=== PATIENT | female | born 1945 | race African-American/Black ===

== ENCOUNTER 2017-06-23 04:08 | Inpatient (IN) ==
[2017-06-23] MEDS ORDERED: ONDANSETRON 4 MG/2 ML VIAL ONE (04:39)
[2017-06-23] MEDS ORDERED: ONDANSETRON 4 MG/2 ML VIAL IV STA (04:42)
[2017-06-23] MEDS ORDERED: HYDROmorphone 2 MG/1 ML VIAL IV STA ×2 (04:47→06:24)
[2017-06-23] MEDS ORDERED: SODIUM CHLORIDE 0.9% 500 ML IV STA (04:47)
[2017-06-23 04:58] LABS: Basophils # 0.1 10*3/uL (0.0-0.2); Basophils % 1.2 % (0.0-0.8); Eosinophils # 0.1 10*3/uL (0.0-0.87); Eosinophils % 1.1 % (0.00-10.9); Hematocrit 43.5 VOL% (35.7-47.0); Hemoglobin 14.5 GM/DL (12.0-16.0); Immature Granulocytes % 0.2 %; Immature Granulocytes Absolute 0.02 #; Lymphocytes # 2.1 10*3/uL (1.4-4.0); Lymphocytes % 24.9 % (21.3-54.2); Mean Corpuscular HGB Conc 33.3 GM/DL (32-36); Mean Corpuscular Hemoglobin 30 PG (27-34); Mean Corpuscular Volume 89.9 FL (87-102); Mean Platelet Volume 9.7 FL (9.6-12.0); Monocytes # 0.4 10*3/uL (0.11-0.8); Monocytes % 5.1 % (1.7-12.7); Neutrophils # 5.8 10*3/uL (1.4-7.4); Neutrophils % 67.5 % (38.7-73.9); Platelet Count 328 T/CUMM (130-400); Red Blood Count 4.84 MC/CUMM (3.8-5.5); Red Cell Distribution Width 13.3 % (9.3-17.3); White Blood Count 8.5 T/CUMM (4-12)
[2017-06-23] MEDS ORDERED: HYDROmorphone 2 MG/1 ML VIAL ONE ×2 (05:04→06:19)
[2017-06-23 05:25] LABS: Albumin 3.6 G/DL (3.4-5.0); Bilirubin,Total 0.4 MG/DL (0.2-1.0); Calcium 9.3 MG/DL (8.5-10.1); Osmolality,Calculated 281.4 MOS/KG (273-304); Potassium 3.9 MMOL/L (3.5-5.1)
[2017-06-23 05:37] LABS: Lactic Acid 2.5 MMOL/L (0.4-2.0)
[2017-06-23 07:06] LABS: Apearance,Urine CLEAR (Clear); Bilirubin,Urine Negative (Negative); Blood, Urine Negative (Negative); Glucose,Urine (UA) 50 mg/dL (Negative); Ketones,Urine Negative (Negative); Mucus,Urine Occasional /LPF (Occasional); Nitrite,Urine Negative (Negative); Protein,Urine Negative; RBC,Urine 1 /HPF (0-4); Squamous Epithelial Cell,Urine Occasional /HPF (0-10); Urine Color Straw (Yellow); Urine Specific Gravity 1.023 (1.001-1.035); Urine Urobilinogen < 2.0 EU/DL (0.2-1.0); WBC,Urine <1 /HPF (0-6)
[2017-06-23] MEDS ORDERED: MORPHINE 2 MG/1 ML SYRINGE IV PRN (11:14)
[2017-06-23] MEDS ORDERED: ACETAMINOPHEN 325 MG TABLET PO PRN (11:14)
[2017-06-23] MEDS ORDERED: ONDANSETRON 4 MG/2 ML VIAL IV PRN (11:14)
[2017-06-23] MEDS ORDERED: CETIRIZINE 10 MG TABLET PO PRN (13:18)
[2017-06-23] MEDS ORDERED: amLODIPine 5 MG TABLET PO ONE (15:03)
[2017-06-23] MEDS ORDERED: ENALAPRIL 2.5 MG/2 ML VIAL IV PRN (15:20)
[2017-06-23] MEDS ORDERED: cloNIDine 0.3 MG/24 HR PATCH TRANSDERM SCH (15:30)
[2017-06-23] MEDS: amLODIPine 5 MG TABLET PO SCH (15:57)
[2017-06-23] MEDS: LACTATED RINGERS 1,000 ML IV SCH (16:32)
[2017-06-23] MEDS: metroNIDAZOLE INJ 500 MG in PREMIX 1 EACH IV SCH ×2 (16:32→21:12)
[2017-06-23] MEDS: PIPERACILLIN/TAZOBACTAM 3,375 MG in SODIUM CHLORIDE 0.9% 100 ML IV SCH ×2 (18:48→22:23)
[2017-06-24] MEDS: metroNIDAZOLE INJ 500 MG in PREMIX 1 EACH IV SCH ×3 (04:06→23:20)
[2017-06-24] MEDS: PIPERACILLIN/TAZOBACTAM 3,375 MG in SODIUM CHLORIDE 0.9% 100 ML IV SCH ×2 (05:08→17:06)
[2017-06-24 07:57] LABS: Basophils # 0.1 10*3/uL (0.0-0.2); Basophils % 1.2 % (0.0-0.8); Eosinophils # 0.1 10*3/uL (0.0-0.87); Eosinophils % 1.6 % (0.00-10.9); Hematocrit 40.3 VOL% (35.7-47.0); Hemoglobin 13.4 GM/DL (12.0-16.0); Immature Granulocytes % 0.2 %; Immature Granulocytes Absolute 0.01 #; Lymphocytes # 2.4 10*3/uL (1.4-4.0); Lymphocytes % 37.9 % (21.3-54.2); Mean Corpuscular HGB Conc 33.3 GM/DL (32-36); Mean Corpuscular Hemoglobin 30 PG (27-34); Mean Corpuscular Volume 90.6 FL (87-102); Mean Platelet Volume 9.3 FL (9.6-12.0); Monocytes # 0.7 10*3/uL (0.11-0.8); Monocytes % 10.1 % (1.7-12.7); Neutrophils # 3.1 10*3/uL (1.4-7.4); Platelet Count 292 T/CUMM (130-400); Red Blood Count 4.45 MC/CUMM (3.8-5.5); Red Cell Distribution Width 13.4 % (9.3-17.3); White Blood Count 6.4 T/CUMM (4-12)
[2017-06-24 08:34] LABS: Calcium 8.8 MG/DL (8.5-10.1); Potassium 3.8 MMOL/L (3.5-5.1)
[2017-06-24] MEDS: amLODIPine 5 MG TABLET PO SCH (09:09)
[2017-06-24] MEDS: LACTATED RINGERS 1,000 ML IV SCH ×2 (09:11→15:44)
[2017-06-24] MEDS ORDERED: DIAZEPAM 5 MG TABLET PO ONE (09:13)
[2017-06-24] MEDS ORDERED: FAMOTIDINE 20 MG TABLET PO ONE (09:13)
[2017-06-24] MEDS ORDERED: BUPIVACAINE 0.25% 50 ML VIAL ONE (09:22)
[2017-06-24] MEDS ORDERED: TISSUE ADHESIVE 1 EACH APPLICATOR TOP ONE (09:23)
[2017-06-24] MEDS: PANTOPRAZOLE 40 MG TABLET PO SCH (09:43)
[2017-06-24] MEDS: MULTIVITAMIN (CENTRUM) TABLET PO SCH (09:43)
[2017-06-24] MEDS ORDERED: ONDANSETRON 4 MG/2 ML VIAL IV PRN (11:46)
[2017-06-24] MEDS ORDERED: ONDANSETRON 4 MG/2 ML VIAL ONE ×2 (11:47→12:18)
[2017-06-24] MEDS: HYDROmorphone 2 MG/1 ML VIAL IV PRN ×4 (11:50→12:15)
[2017-06-24] MEDS ORDERED: SEVOFLURANE 1 UNIT/15 MINUTE INH ONE (12:17)
[2017-06-24] MEDS ORDERED: PROPOFOL 200 MG/20 ML VIAL IV ONE (12:17)
[2017-06-24] MEDS ORDERED: NEOSTIGMINE 10 MG/10 ML VIAL ONE (12:18)
[2017-06-24] MEDS ORDERED: LACTATED RINGERS 1,000 ML IV ONE (12:18)
[2017-06-24] MEDS ORDERED: fentaNYL 100 MCG/2 ML VIAL ONE (12:18)
[2017-06-24] MEDS ORDERED: ALBUTEROL/IPRATROPIUM 3 ML NEB RESP TX ONE (14:35)
[2017-06-24] MEDS: ALBUTEROL/IPRATROPIUM 3 ML NEB RESP TX SCH ×2 (19:10→23:00)
[2017-06-25] MEDS: PIPERACILLIN/TAZOBACTAM 3,375 MG in SODIUM CHLORIDE 0.9% 100 ML IV SCH ×2 (00:26→10:27)
[2017-06-25] MEDS: ALBUTEROL/IPRATROPIUM 3 ML NEB RESP TX SCH ×3 (03:00→10:42)
[2017-06-25] MEDS: metroNIDAZOLE INJ 500 MG in PREMIX 1 EACH IV SCH (06:54)
[2017-06-25 07:58] VITALS: BP 125/70
[2017-06-25] MEDS: amLODIPine 5 MG TABLET PO SCH (10:22)
[2017-06-25] MEDS: MULTIVITAMIN (CENTRUM) TABLET PO SCH (10:22)
[2017-06-25] MEDS: PANTOPRAZOLE 40 MG TABLET PO SCH (10:22)
== END 2017-06-25 12:20 | disposition home or self-care (01) | DRG 419 ==
LOC: N.ED 04:08 → N.EDINP 11:14 → N.3E 12:58
PROVIDERS: ADMIT Surgery; ATTEND Surgery
PROC: LAPCHOL (2017-06-24 10:00)